=== PATIENT | male | born 1985 | race Caucasian/White ===

== ENCOUNTER 2017-07-29 09:07 | Emergency (ER) | payer SELFPAY ==
[2017-07-29] MEDS ORDERED: Ketorolac 60 MG/2 ML SDV IM ONE (09:33)
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
== END 2017-07-29 10:22 | disposition home or self-care (01) ==
LOC: MW.ED 09:07
DX: M25.511 Pain in right shoulder (principal); F32.9 Major depressive disorder, single episode, unspecified; Z79.899 Other long term (current) drug therapy; V29.9XXA Motorcycle rider (driver) (passenger) injured in unspecified traffic accident, initial encounter
CPT/HCPCS: 73030; 96372; 99283; J1885